=== PATIENT | male | born 1980 | race African-American/Black ===

== ENCOUNTER 2021-10-05 13:06 | Emergency (ER) | payer SELFPAY ==
[~2021-10-05] VITALS: Ht 190.5 cm; Wt 83.9 kg
[2021-10-05 15:25] VITALS: BP 157/96
[2021-10-05] MEDS ORDERED: cefTRIAXone IM 500 MG VIAL. IM ONE (15:30)
[2021-10-05] MEDS ORDERED: metroNIDAZOLE 500 MG TABLET PO ONE (15:30)
[2021-10-05] MEDS ORDERED: DOXYCYCLINE HYCLATE 100 MG TABLET PO ONE (15:30)
[2021-10-05] MEDS ORDERED: DOXY100T PO (15:35)
--- NOTE | 2021-10-05 15:36 | PHYS DOC ---
General Adult EDM: Chief Complaint: SEXUALLY TRANSMITTED DISEASE HPI: HPI: Patient is a 40 year old male who presents the ED today requesting STD treatment. Patient states the girlfriend was seen in the ED earlier today and was positive for trichomonas. He states he sometimes has lower abdominal pain. Denies any nausea, vomiting. States pain is usually slight with nothing exacerbating or relieving it. Review of Systems: Review of Systems: Constitutional: Denies fever or chills. [] GI: Requesting STD treatment, reports slight lower abdominal pain, denies nausea, vomiting, bloody stools or diarrhea. [] : Denies dysuria. [] Musculoskeletal: Denies back pain or joint pain. [] Integument: Denies rash. [] Neurologic: Denies headache, focal weakness or sensory changes. [] Psychiatric: Denies depression or anxiety. [] Heart Score: C/O Chest Pain: N/A Risk Factors: Risk Factors: DM, Current or recent (<one month) smoker, HTN, HLP, family histo ry of CAD, obesity. Risk Scores: Score 0 - 3: 2.5% MACE over next 6 weeks - Discharge Home Score 4 - 6: 20.3% MACE over next 6 weeks - Admit for Clinical Observation Score 7 - 10: 72.7% MACE over next 6 weeks - Early Invasive Strategies Physical Exam: PE: Constitutional: Well developed, well nourished, no acute distress, non-toxic appearance. [] Abdomen: Bowel sounds normal, soft, no tenderness, no masses, no pulsatile masses. [] Skin: Warm, dry, no erythema, no rash. [] Back: No tenderness, no CVA tenderness. [] Extremities: No tenderness, no cyanosis, no clubbing, ROM intact, no edema. [] Neurologic: Alert and oriented X 3, normal motor function, normal sensory function, no focal deficits noted. [] Psychologic: Affect normal, judgement normal, mood normal. [] EKG: EKG: [] Radiology/Procedures: Radiology/Procedures: [] Course & Med Decision Making: Course & Med Decision Making Pertinent Labs and Imaging studies reviewed. (See chart for details) This is a 40-year-old male patient presenting to the ED today requesting STD treatment. The girlfriend tested positive for trichomonas. Patient was given standard STD treatment. Rx for doxycycline sent to the pharmacy. STD education also provided Jonelle Disclaimer: Jonelle Disclaimer: This electronic medical record was generated, in whole or in part, using a voice recognition dictation system. Departure Departure Impression: Primary Impression: Concern about STD in male without diagnosis Disposition: HOME / SELF CARE / HOMELESS Condition: STABLE Patient Instructions: Sexually Transmitted Disease, [id number] Additional Instructions: You were treated for sexually transmitted diseases, please do not have any intercourse for 7 days. Use protection at all times. Take the prescribed antibiotics until completed. Follow-up with the health department. Inform all your sex partners you were treated for STDs and ask them to seek treatment Scripts Doxycycline Hyclate (DOXYCYCLINE HYCLATE) 100 Mg Tablet 1 TAB PO BID, #14 TAB Prov: EMMIE ALONSO APRN 10/05/21 EMMIE ALONSO APRN Oct 05, 2021 15:36
== END 2021-10-05 16:31 | disposition home or self-care (01) ==
LOC: ER 13:06
DX: R10.30 Lower abdominal pain, unspecified (principal); Z20.2 Contact with and (suspected) exposure to infections with a predominantly sexual mode of transmission
CPT/HCPCS: 96372; 99283; J0696